=== PATIENT | male | born 1945 | race Caucasian/White ===

== ENCOUNTER → 2024-03-19 | Outpatient (CLI) | payer MEDICARE, SELFPAY ==
--- NOTE | 2024-03-19 14:25 | NEURO ---
NCS and/or EMG Patient Report Ordering Doctor: MARI JOHNSON DATE OF SERVICE: 03/19/24 Lyle presents with complaints of numbness and tingling in both arms, worse on the right side, following a CVA in 2022. Electrodiagnostic findings: Right median motor nerve demonstrates normal distal latency, amplitude and conduction velocity. Left median motor nerve demonstrates normal distal latency, amplitude and conduction velocity. Ulnar motor response is within normal limits bilaterally, including conduction across the elbow. Mildly prolonged right ulnar F?wave. Borderline prolonged median sensory latency at the wrist bilaterally. Normal median palmar latencies. Normal ulnar and radial sensory responses. Needle EMG testing was performed the upper limbs. All muscles tested showed no evidence of denervation with normal motor unit action potentials. Electrodiagnostic impression: This is a normal electrodiagnostic study of the upper limbs. There is no electrodiagnostic evidence for peripheral neuropathy, including carpal tunnel syndrome. There is no electrodiagnostic evidence for cervical radiculopathy. Multi Select Codes Neurology Neurology Interp Codes: 48705-84 Musc test done w/n test comp (interp) (2) and 68429-95 Nrv cndj test 13/> studies (interp)
== END | disposition home or self-care (01) ==
PROVIDERS: PCP Nurse Practitioner Family; Referring Provider Nurse Practitioner Adult Health; Visit Provider Nurse Practitioner Adult Health
DX: R20.2 Paresthesia of skin (principal)
CPT/HCPCS: 95886; 95913